=== PATIENT | male | born 1950 | race Native Hawaiian/Other Pacific Islander ===

== ENCOUNTER 2019-08-24 12:48 | Outpatient (CLI) | payer OTHER ==
[2019-08-24 13:51] LABS: PLATELET COUNT 139 K/uL (142-355)
[2019-08-24 14:15] LABS: POTASSIUM 4.3 mmol/L (3.6-5.2)
== END 2019-08-24 19:35 | disposition home or self-care (01) ==
LOC: LAB 12:48
PROVIDERS: Nurse Practitioner Family
DX: Z00.00 Encounter for general adult medical examination without abnormal findings (principal); E11.9 Type 2 diabetes mellitus without complications; I10 Essential (primary) hypertension; E55.9 Vitamin D deficiency, unspecified; E78.2 Mixed hyperlipidemia; Z79.899 Other long term (current) drug therapy; N40.0 Benign prostatic hyperplasia without lower urinary tract symptoms
CPT/HCPCS: 80053; 80061; 83036; 84153; 84439; 84443; 85027

== ENCOUNTER 2022-05-09 10:07 | Emergency (ER) | payer OTHER ==
[~2022-05-09] VITALS: Ht 180.3 cm; Wt 90.7 kg
[2022-05-09 11:07] LABS: PLATELET COUNT 135 K/uL (142-355)
[2022-05-09 11:26] LABS: POTASSIUM 4.1 mmol/L (3.6-5.2)
[2022-05-09 13:16] VITALS: BP 125/74; TEMP 98.3
== END 2022-05-09 13:16 | disposition home or self-care (01) ==
LOC: ED 10:07
PROVIDERS: Emergency Medicine
DX: R07.89 Other chest pain (principal); I10 Essential (primary) hypertension
CPT/HCPCS: 80053; 83690; 83880; 84443; 84484; 85027; 85610; 85730; 93005; 96374; 96375; 99284; J2270; J2405; J3490